=== PATIENT | female | born 1985 | race Caucasian/White ===

== ENCOUNTER 2016-08-03 22:24 | Emergency (ER) | payer OTHER ==
[2016-08-04 00:12] LABS: BILIRUBIN NEGATIVE (NEGATIVE); BLOOD 1+ Ery/uL (NEGATIVE); CLARITY CLEAR (CLEAR); COLOR YELLOW (YELLOW); GLUCOSE (U) NORMAL (NORMAL); KETONE (U) NEGATIVE (NEGATIVE); LEUKOCYTES NEGATIVE Leu/uL (NEGATIVE); NITRITE NEGATIVE (NEGATIVE); PROTEIN NEGATIVE (NEGATIVE); SPECIFIC GRAVITY 1.025 (1.001-1.030); UROBILINOGEN 0.2 mg/dL (0.2-1.0); pH 5.5 (5.0-9.0)
[2016-08-04 00:24] LABS: BACTERIA 1+; URINARY WBC RARE
[2016-08-04 00:25] LABS: MUCOUS LARGE
[2016-08-04 00:57] LABS: BASOPHIL 0.3 % (0-2); EOSINOPHIL 3.4 % (0-5); HCT 39.1 % (37.0-47.0); HGB 13.3 g/dl (12.5-16.0); LYMPHOCYTE 23.6 % (15-48); MCH 30.2 pg (25.0-31.0); MCV 88.9 fL (78.0-100.0); MONOCYTE 17.8 % (0-12); MPV 9.5 fL (6.0-9.5); NEUTROPHIL 54.9 % (41-80); PLT 315 K/uL (150-400); RDW 12.5 % (11.5-14.0); WBC 15.1 K/uL (4.0-10.5)
[2016-08-04 01:21] LABS: CREATININE 0.7 mg/dL (0.5-1.0); POTASSIUM 4.4 mmol/L (3.5-5.1)
== END 2016-08-04 01:33 | disposition home or self-care (01) ==
LOC: FER 22:24
PROVIDERS: Emergency Medicine
DX: N30.00 Acute cystitis without hematuria (principal); Z87.440 Personal history of urinary (tract) infections
CPT/HCPCS: 36415; 80048; 81001; 85025; 87088

== ENCOUNTER 2020-12-15 23:14 | Emergency (ER) | payer OTHER ==
[~2020-12-15 23:14] MED LIST: CYCLOBENZAPRINE10 MG PO; IBUPROFEN800 MG PO; MEDROL 4MG DOSEP4 MG PO; PERCOCET 5-3251 EACH PO
[2020-12-16] MEDS ORDERED: AMOXICILLIN500 M2 PO (03:29)
[2020-12-16] MEDS ORDERED: PERCOCET 10-321 EACH PO (03:29)
[2020-12-16] MEDS ORDERED: IBUPROFEN800 MG PO (03:29)
== END 2020-12-16 03:40 | disposition home or self-care (01) ==
LOC: FER 23:14
DX: K04.7 Periapical abscess without sinus (principal)
CPT/HCPCS: 96372; J1885; J2405; Q0163